=== PATIENT | male | born 1955 | race Two or more races ===

== ENCOUNTER 2020-09-15 14:32 | Emergency (ER) | payer OTHER ==
[~2020-09-15] VITALS: Ht 167.6 cm; Wt 78.0 kg
[2020-09-15] MEDS ORDERED: DEXAMETHASONE 4 MG TABLET PO ONE (15:00)
[2020-09-15 15:07] VITALS: BP 154/81
--- NOTE | 2020-09-15 15:31 | NUR ---
C/O SORE THROAT AND COUGH X5 DAYS, EXPOSED TO COVID BY RELATIVE.
--- NOTE | 2020-09-15 15:47 | NUR ---
PER PROVIDER RICCI GROVE.
== END 2020-09-15 16:14 | disposition home or self-care (01) ==
LOC: ED 15:55
DX: U07.1 COVID-19 (principal); B34.9 Viral infection, unspecified; J02.9 Acute pharyngitis, unspecified; R06.02 Shortness of breath; R09.81 Nasal congestion; R05 Cough; M79.10 Myalgia, unspecified site
CPT/HCPCS: 71045; 87635; 99284